=== PATIENT | female | born 1965 | race Asian ===

== ENCOUNTER 2020-05-27 18:20 | Inpatient (IN) | payer OTHER ==
[~2020-05-27] VITALS: Ht 157.5 cm; Wt 49.9 kg
[2020-05-27] MEDS ORDERED: KETOROLAC TROMETHAMINE 60 MG INJ IM ONE ×2 (19:00→19:01)
[2020-05-27] MEDS ORDERED: MORPHINE SULFATE 2 MG/1 ML DISP.SYRIN IM ONE ×2 (19:00→19:30)
[2020-05-27] MEDS ORDERED: ONDANSETRON ODT 4 MG TAB.RAPDIS SL ONE (19:00)
[2020-05-27] MEDS ORDERED: IV NORMAL SALINE 1000 ML BAG IV ONE (19:00)
[2020-05-27] MEDS ORDERED: ONDANSETRON ODT 4 MG TAB.RAPDIS ONE (19:01)
[2020-05-27] MEDS ORDERED: MORPHINE SULFATE 2 MG/1 ML DISP.SYRIN ONE (19:01)
--- NOTE | 2020-05-27 19:08 | NUR ---
Recieved pt from [facility]. Pt presents to ER for c/o of RLQ. Pt taken to CT at this time.
[2020-05-27 19:41] LABS: BASOPHILS % (AUTO) 0.5 % (0.0-2.0); EOSINOPHILS % (AUTO) 0.1 % (0.0-7.0); HEMATOCRIT 38.6 % (31.2-41.9); HEMOGLOBIN 13.1 g/dL (10.9-14.3); LYMPHOCYTES # (AUTO) 0.5 K/uL (20.0-40.0); LYMPHOCYTES % (AUTO) 9.8 % (20.5-51.5); MEAN CORPUSCULAR HEMOGLOBIN 31.4 uug (24.7-32.8); MEAN CORPUSCULAR HGB CONC 34 g/dL (32.3-35.6); MEAN CORPUSCULAR VOLUME 92.7 fL (75.5-95.3); MONOCYTES # (AUTO) 0.4 K/uL (2.0-10.0); MONOCYTES % (AUTO) 8.3 % (0.0-11.0); NEUTROPHILS # (AUTO) 4.1 K/uL (1.8-8.9); NEUTROPHILS % (AUTO) 81.3 % (38.5-71.5); PLATELET COUNT (AUTO) 211 K/uL (179-408); RED BLOOD CELL COUNT(AUTO) 4.16 MIL/uL (3.63-4.92)
--- NOTE | 2020-05-27 19:43 | NUR ---
Per Dr. Wood, to give zosyn and no blood cultures need prior to administration.
[2020-05-27 19:45] LABS: CREATININE 0.6 mg/dL (0.6-1.3); POTASSIUM 3.3 mmol/L (3.5-5.1)
[2020-05-27] MEDS ORDERED: PIPERACILLIN SODIUM/TAZOBACTAM 3.375 G in IV DEXTROSE 5% 50 ML IV ONE (19:45)
[2020-05-27 19:50] LABS: BILIRUBIN,DIRECT 0.1 mg/dL (0.0-0.2); BILIRUBIN,TOTAL 0.4 mg/dL (0.2-1.0); TOTAL PROTEIN, SERUM 6.2 g/dL (6.4-8.2)
[2020-05-27] MEDS ORDERED: PIPERACILLIN/TAZOBACTAM/D5W 50 ML IV ONE (19:50)
[2020-05-27] MEDS ORDERED: MORPHINE SULFATE 2 MG/1 ML DISP.SYRIN IV ONE (20:00)
--- NOTE | 2020-05-27 20:30 | NUR ---
Ultrasound at bedside.
--- NOTE | 2020-05-27 21:04 | NUR ---
pt reports pain 3/10, and tolerable. Per Dr. Nina mai to give water.
--- NOTE | 2020-05-27 23:42 | NUR ---
Report given to Lani [facility]
[2020-05-28 00:36] VITALS: BP 96/56
[2020-05-28] MEDS ORDERED: ONDANSETRON 4 MG/2 ML VIAL IV PRN (01:00)
[2020-05-28] MEDS ORDERED: MORPHINE SULFATE 4 MG/1 ML DISP.SYRIN IV PRN (01:00)
[2020-05-28] MEDS: IV LACTATED RINGERS SOLUTION 1,000 ML IV PRN ×2 (02:27→13:09)
[2020-05-28 04:12] VITALS: BP 99/54
[2020-05-28 05:49] LABS: BASOPHILS % (AUTO) 0.7 % (0.0-2.0); EOSINOPHILS % (AUTO) 0.7 % (0.0-7.0); HEMOGLOBIN 11.9 g/dL (10.9-14.3); LYMPHOCYTES # (AUTO) 0.8 K/uL (20.0-40.0); LYMPHOCYTES % (AUTO) 20.3 % (20.5-51.5); MEAN CORPUSCULAR HEMOGLOBIN 31.1 uug (24.7-32.8); MEAN CORPUSCULAR HGB CONC 33 g/dL (32.3-35.6); MONOCYTES # (AUTO) 0.4 K/uL (2.0-10.0); MONOCYTES % (AUTO) 10.6 % (0.0-11.0); NEUTROPHILS # (AUTO) 2.5 K/uL (1.8-8.9); NEUTROPHILS % (AUTO) 67.7 % (38.5-71.5); PLATELET COUNT (AUTO) 177 K/uL (179-408); RED BLOOD CELL COUNT(AUTO) 3.83 MIL/uL (3.63-4.92); WHITE BLOOD COUNT (AUTO) 3.7 K/uL (3.8-11.8)
[2020-05-28] MEDS: PANTOPRAZOLE SODIUM 40 MG TABLET.DR PO SCH (06:01)
[2020-05-28 06:05] LABS: BILIRUBIN,TOTAL 0.2 mg/dL (0.2-1.0); CREATININE 0.5 mg/dL (0.6-1.3); MAGNESIUM 1.8 mg/dL (1.8-2.4); PHOSPHOROUS 3.3 mg/dL (2.5-4.9); POTASSIUM 2.9 mmol/L (3.5-5.1); TOTAL PROTEIN, SERUM 5.4 g/dL (6.4-8.2)
--- NOTE | 2020-05-28 07:30 | NUR ---
Received patient in bed Awake alert and oriented times 4. No sign of distress noted. Patient is on room air and receiving IV fluids LR at 100mls/hr. Patient complains of pain level of 4 but wants to choose alternative methods. Safety precautions are in place. Will continue to monitor.
[2020-05-28] MEDS ORDERED: POTASSIUM CHLORIDE 20 MEQ TAB.PRT.SR PO ONE ×2 (09:15→12:00)
[2020-05-28] MEDS: MIRALAX 17 GM POWD.PACK PO SCH (09:37)
[2020-05-28 11:28] VITALS: BP 105/57
[2020-05-28] MEDS: levoFLOXacin 500 MG/D5W 500 MG in PREMIXED 1 EACH IV SCH (11:50)
[2020-05-28 15:08] VITALS: BP 98/66
[2020-05-28 17:30] LABS: CREATININE 0.6 mg/dL (0.6-1.3); POTASSIUM 4.8 mmol/L (3.5-5.1)
--- NOTE | 2020-05-28 19:07 | NUR ---
Patient is left resting bed. No sign of distress noted. Gave all medications as ordered. Safety precautions are in place. Will endorse to the oncoming nurse.
--- NOTE | 2020-05-28 19:45 | NUR ---
PATIENT ALERT ORIENTED, RESTING IN BED. PATIENT HAS SOME ABDOMINAL DISCOMFORT BUT REFUSED PAIN MEDICATION AT THIS TIME. PATIENT SAID SHE BURP BUT NO PASSING OF GAS YET. PATIENT TOLERATE FULL LIQUID DIET, CONT TO MONITOR.
[2020-05-28 20:20] VITALS: BP 105/63
[2020-05-29] MEDS: IV LACTATED RINGERS SOLUTION 1,000 ML IV PRN ×3 (00:26→22:39)
[2020-05-29] MEDS: ACETAMINOPHEN 325 MG TABLET PO PRN ×2 (02:23→08:29)
[2020-05-29 04:20] VITALS: BP 118/71
[2020-05-29] MEDS: PANTOPRAZOLE SODIUM 40 MG TABLET.DR PO SCH (06:15)
--- NOTE | 2020-05-29 06:33 | NUR ---
PATIENT ASLEEP BUT AROUSABLE, COMPLAIN OF ABDOMINAL DISCOMFORT. PATIENT REFUSED MORPHINE IV MEDICATIONS, BUT TOOK TYLENOL 650MG PO EARLIER WITH SOME HELP. PATIENT TOLERATE FULL LIQUID DIET, CALL LIGHT WITHIN REACH.
[2020-05-29 07:34] LABS: CREATININE 0.6 mg/dL (0.6-1.3)
[2020-05-29] MEDS ORDERED: MAGNESIUM HYDROXIDE 30 ML LIQUID UDC PO PRN (08:00)
[2020-05-29] MEDS: MIRALAX 17 GM POWD.PACK PO SCH ×2 (09:00→09:53)
[2020-05-29] MEDS: levoFLOXacin 500 MG/D5W 500 MG in PREMIXED 1 EACH IV SCH (11:33)
[2020-05-29 11:34] VITALS: BP 105/45
[2020-05-29] MEDS ORDERED: DIATR MEGLU/DIATRIZOATE SODIUM 30 ML BOTTLE ONE (11:51)
[2020-05-29 15:17] VITALS: BP 122/69
--- NOTE | 2020-05-29 19:00 | NUR ---
RECEIVED IN BED, ALERT ORIENTED, WITH SOME DISCOMFORT BUT TOLERATE WELL. PATIENT HAS NO FURTHER EPISODE OF LOSE STOOLS. PATIENT HAS NO NAUSEA NO VOMITING AT THIS TIME. CALL LIGHT WITHIN REACH.
[2020-05-29 20:16] VITALS: BP 109/64
[2020-05-30 04:16] VITALS: BP 117/62
[2020-05-30] MEDS: PANTOPRAZOLE SODIUM 40 MG TABLET.DR PO SCH (06:38)
--- NOTE | 2020-05-30 06:58 | NUR ---
PATIENT SLEPT MOST OF THE NIGHT, NO COMPLAIN OF PAIN AT THIS TIME. NO NAUSEA NO VOMITING NOTED, CALL LIGHT WITHIN REACH.
[2020-05-30] MEDS: ACETAMINOPHEN 325 MG TABLET PO PRN (07:07)
[2020-05-30] MEDS: MIRALAX 17 GM POWD.PACK PO SCH (08:38)
[2020-05-30 10:08] LABS: *BILIRUBIN,URIN NEGATIVE (NEGATIVE); *BLOOD, URINE NEGATIVE (NEGATIVE); *CLARITY,URINE CLEAR (CLEAR); *COLOR,URINE YELLOW (YELLOW); *KETONES,URINE NEGATIVE (NEGATIVE); *UROBILINOGEN,URINE 0.2 E.U./dl (NORMAL); LEUKOCYTE ESTERASE ,URINE NEGATIVE (NEGATIVE); NITRITE, URINE NEGATIVE (NEGATIVE); PH,URINE 8.5 (5.0-8.0); UGLUCOSE NEGATIVE (NEGATIVE)
[2020-05-30] MEDS: levoFLOXacin 500 MG/D5W 500 MG in PREMIXED 1 EACH IV SCH (10:13)
[2020-05-30] MEDS: IV LACTATED RINGERS SOLUTION 1,000 ML IV PRN ×2 (10:19→21:52)
[2020-05-30 11:19] LABS: BASOPHILS % (AUTO) 0.8 % (0.0-2.0); BILIRUBIN,DIRECT 0.1 mg/dL (0.0-0.2); BILIRUBIN,TOTAL 0.2 mg/dL (0.2-1.0); CREATININE 0.7 mg/dL (0.6-1.3); EOSINOPHILS # (AUTO) 0.1 K/uL (0.0-0.7); EOSINOPHILS % (AUTO) 2.8 % (0.0-7.0); HEMOGLOBIN 13.3 g/dL (10.9-14.3); LYMPHOCYTES # (AUTO) 0.9 K/uL (20.0-40.0); LYMPHOCYTES % (AUTO) 28.6 % (20.5-51.5); MEAN CORPUSCULAR HEMOGLOBIN 31.4 uug (24.7-32.8); MEAN CORPUSCULAR HGB CONC 33 g/dL (32.3-35.6); MEAN CORPUSCULAR VOLUME 94.3 fL (75.5-95.3); MONOCYTES # (AUTO) 0.2 K/uL (2.0-10.0); MONOCYTES % (AUTO) 6.9 % (0.0-11.0); NEUTROPHILS % (AUTO) 60.9 % (38.5-71.5); PLATELET COUNT (AUTO) 247 K/uL (179-408); POTASSIUM 3.9 mmol/L (3.5-5.1); RED BLOOD CELL COUNT(AUTO) 4.22 MIL/uL (3.63-4.92); TOTAL PROTEIN, SERUM 6.5 g/dL (6.4-8.2); WHITE BLOOD COUNT (AUTO) 3.3 K/uL (3.8-11.8)
[2020-05-30 11:21] LABS: HEMATOCRIT 39.8 % (31.2-41.9)
[2020-05-30 11:57] VITALS: BP 127/78
--- NOTE | 2020-05-30 15:57 | NUR ---
patient will be NPO midnight for endoscopy tomorrow 05/31/[address] contreras.
--- NOTE | 2020-05-30 15:58 | NUR ---
explained to patient the endoscopy is going to be tomorrow, patient agreed to plan, patient felt nauseous and weak, dull pain in her stomach, zofran given, with some effectiveness
[2020-05-30 16:00] VITALS: BP 127/71
--- NOTE | 2020-05-30 18:35 | NUR ---
patient endoscopy will be tomorrow at 530am
--- NOTE | 2020-05-30 19:25 | NUR ---
NPO midnight endorsed to next shift
[2020-05-30 20:25] VITALS: BP 104/63
[2020-05-31 04:30] VITALS: BP 122/74
[2020-05-31] MEDS: METOCLOPRAMIDE HCL 10 MG/2 ML VIAL IV SCH ×2 (06:32→14:15)
--- NOTE | 2020-05-31 06:42 | NUR ---
Pt slept throughout the night. Left for EGD at around 0515H. Came back to unit around 0630H. Tolerated procedure well. Pt is awake and alert X 4. Denies pain or SOB. Tolerated all medications well. IV site is intact and patent. Pt is resting in bed, diet is changed to regular for today, patient is aware but stated that she will take it slow with advancing her diet. No other issues or concerns at this time.
--- NOTE | 2020-05-31 06:55 | NUR ---
HIDA scan ordered for patient, was informed to stay NPO, consent signed and in chart.
[2020-05-31] MEDS ORDERED: SUCRALFATE 1 G/10 ML LIQUID UDC GT SCH (07:30)
--- NOTE | 2020-05-31 07:30 | NUR ---
PATIENT RECEIVED RESTING IN BED. PATIENT IS AWARE OF HER NPO STATUS DUE TO PENDING PROCEDURE WITH DR. RANDALL. CONSENT ON FILE. PATIENT IS RECEIVING LACTATED RINGER'S 100ML/H ORDERED. IV IS PATENT WITH NO SIGNS OF REDNESS OR SWELLING. PATIENT DOES NOT REPORT ANY DISCOMFORTS AT THIS TIME AND WAS HELPED TO THE BATHROOM. PATIENT IS NOW BACK IN BED WITH PERSONAL BELONGINGS AND CALL LIGHT WITHIN REACH.
[2020-05-31] MEDS ORDERED: PANTOPRAZOLE SODIUM 40 MG VIAL IV SCH (09:00)
[2020-05-31] MEDS: MIRALAX 17 GM POWD.PACK PO SCH (09:00)
[2020-05-31 11:35] VITALS: BP 118/73
[2020-05-31] MEDS: levoFLOXacin 500 MG/D5W 500 MG in PREMIXED 1 EACH IV SCH (12:24)
[2020-05-31] MEDS: SUCRALFATE 1 G TABLET PO SCH ×2 (12:30→16:24)
[2020-05-31] MEDS ORDERED: PANT40TA2 PO (15:37)
[2020-05-31] MEDS: ACETAMINOPHEN 325 MG TABLET PO PRN (15:45)
[2020-05-31 16:00] VITALS: BP 104/63
--- NOTE | 2020-05-31 17:18 | NUR ---
NEW ORDERS FOR DISCHARGE. PATIENT AWARE AND READY TO GO HOME. AT BEDSIDE.
[2020-05-31] MEDS ORDERED: IRR STERIL WATER FOR IRR 1000 ML BOTTLE IR ONE (18:09)
[2020-05-31] MEDS ORDERED: PROPOFOL 200 MG/20 ML BOTTLE IV ONE (18:09)
[2020-05-31] MEDS ORDERED: IV LACTATED RINGERS SOLUTION 1,000 ML BAG IV ONE (18:09)
[2020-05-31] MEDS ORDERED: LIDOCAINE-MPF 2% 5 ML VIAL IJ ONE (18:09)
== END 2020-05-31 18:10 | disposition home or self-care (01) | DRG 371 ==
LOC: ER 18:23 → MEDSURG3 22:25
PROVIDERS: ADMIT Internal Medicine; ATTEND Internal Medicine
PROC: 0DB68ZX Excision of Stomach, Via Natural or Artificial Opening Endoscopic, Diagnostic (ICD-10-PCS; principal; 2020-05-31)
DX: A04.9 Bacterial intestinal infection, unspecified (principal); K65.9 Peritonitis, unspecified; K56.7 Ileus, unspecified; E87.6 Hypokalemia; R59.0 Localized enlarged lymph nodes; Z20.822 Contact with and (suspected) exposure to COVID-19; K29.70 Gastritis, unspecified, without bleeding
CPT/HCPCS: 36415; 71045; 74250; 78445; 83690; 83735; 84100; 85025; 93005; A4217; A4663; A9537; G0378; J1885; J1956; J2270; J2405; J2543; J2765; J3490; J7030; J7120; Q0162; Q9963